=== PATIENT | female | born 1970 | race American Indian/Alaskan Native ===

== ENCOUNTER 2019-02-27 14:37 | Outpatient (CLI) | payer BC ==
--- NOTE | 2019-02-27 16:13 | Mammography Report ---
DIGITAL SCREENING MAMMOGRAM WITH CAD, 02/27/2019 INDICATION: Routine screening mammography. TECHNIQUE: Digital bilateral 2D mammography was obtained in the craniocaudal and mediolateral obliq ue projections. This examination was interpreted with the benefit of Computer-Aided Detection analysi s. COMPARISON: 07/09/2016 FINDINGS: Breast Density: The breasts are heterogeneously dense, which may obscure small masses. Partially circumscribed right asymmetries require additional imaging. No suspicious calcifications or architectural distortion in either breast. IMPRESSION: BI-RADS Category 0: Incomplete. Needs additional imaging evaluation and/or prior mammograms for tha rison. A "normal" or negative report should not discourage follow up or biopsy of a clinically significant f inding. A written summary of these findings will be mailed to the patient. The patient will be entered into a mammography reporting system which will generate a reminder letter for the patient's next appointmen t at the appropriate interval. [employer] recommends yearly mammograms starting at age 40 and continuing as l bakari as a woman is in good health. Breast MRI is recommended for women with an approximate 20-25% or greater lifetime risk of breast cancer, including women with a strong family history of breast or ova tye cancer or who have been treated for Hodgkin's disease. Signer Name: Fredis Rivera MD Signed: 02/27/2019 5:08 PM Workstation Name: [id number]
== END 2019-02-27 14:38 | disposition home or self-care (01) ==
LOC: MAMMO 14:37
PROVIDERS: ATTEND Advanced Practice Midwife
DX: Z12.31 Encounter for screening mammogram for malignant neoplasm of breast (principal)
CPT/HCPCS: 77067